=== PATIENT | male | born 1930 | race Caucasian/White ===

== ENCOUNTER 2016-08-22 13:30 | Emergency (ER) | payer MEDICARE, BC ==
[2016-08-22] MEDS ORDERED: FLOMAX0.4 M1 PO (14:34)
[2016-08-22] MEDS ORDERED: LASIX40 M1 PO (14:35)
[2016-08-22] MEDS ORDERED: FLONASE ALLERG9.9 ML (14:35)
[2016-08-22] MEDS ORDERED: LIPITOR40 M1 PO (14:35)
[2016-08-22] MEDS ORDERED: ZYLOPRIM100 M1 PO (14:35)
[2016-08-22] MEDS ORDERED: COREG12.5 M1 PO (14:35)
[2016-08-22] MEDS ORDERED: HYDROCODON-ACE1 EA17 PO (14:36)
[2016-08-22] MEDS ORDERED: PLAVIX75 M1 PO (14:36)
[2016-08-22] MEDS ORDERED: PROTONIX40 M2 PO (14:36)
[2016-08-22] MEDS ORDERED: NITROSTAT0.4 MG/TAB SL (14:37)
[2016-08-22] MEDS ORDERED: ZESTRIL2.5 M3 PO (14:37)
[2016-08-22] MEDS ORDERED: IPRATROPIUM BROMIDE INH (15:00)
[2016-08-22] MEDS ORDERED: ALBUTEROL2.5 MG/3 M INH (15:01)
[2016-08-22] MEDS ORDERED: KEFLEX500 M4 PO (16:32)
== END 2016-08-22 17:05 ==
LOC: EDMED 13:30
DX: R04.0 Epistaxis (principal)